=== PATIENT | female | born 1970 | race Caucasian/White ===

== ENCOUNTER 2016-12-16 07:45 | Emergency (ER) | payer MEDICAID ==
--- NOTE | 2016-12-16 08:15 | UC ---
Shoulder Pain HPI - HPI Summary HPI Summary: SLIPPED ON ICE 3 DAYS AGO AND FELL BACKWARDS - CATCHING HERSELF WITH HER RIGHT ARM. NOW HAS RIGHT SHOULDER PAIN AND DECREASED ROM - GETTING WORSE. IBUPROFEN GIVES SOME RELIEF. - History of Current Complaint Chief Complaint: UC Stated Complaint: SHOULDER INJURY Time Seen by Provider: 12/16/16 08:01 Hx Obtained From: Patient Hx Last Menstrual Period: 2012 Onset/Duration: Sudden Onset, Lasting Days, Still Present Timing: Constant Severity Initially: Moderate Severity Currently: Moderate Location Of Pain: Is Discrete @ - RIGHT SHOULDER Pain Intensity: 7 Pain Scale Used: 0-10 Numeric Character: Sharp, Aching Aggravating Factor(s): Movement Alleviating Factor(s): Rest Associated Signs And Symptoms: Positive: Negative Related History: Dominant Hand Right - Allergies/Home Medications Allergies/Adverse Reactions: Allergies Allergy/AdvReac Type Severity Reaction Status Date / Time Amoxicillin Allergy Unknown Verified 05/26/13 18:44 Reaction Details Azithromycin [From Zithromax] Allergy Rash Verified 01/12/14 11:03 Erythromycin Allergy "INSIDES Verified 05/26/13 18:44 ON FIRE" Sulfa Drugs Allergy Rash Verified 05/26/13 18:44 Sulfamethoxazole Allergy Unknown Verified 05/26/13 18:44 w/Trimethoprim Reaction [From Bactrim] Details CT CONTRAST DYE Allergy Mild ABDOMENAL Uncoded 06/10/13 13:42 RASH Home Medications: Home Medications Letrozole 2.5 mg PO DAILY 12/16/16 [History Confirmed 12/16/16] PMH/Surg Hx/FS Hx/Imm Hx Endocrine History Of: Denies: Diabetes Cardiovascular History Of: Denies: Hypertension, Congestive Heart Failure Respiratory History Of: Reports: Bronchitis - A CHILD, Pulmonary Embolism Denies: Asthma Cancer History Of: Reports: Breast Cancer - LEFT 04/13 Other History Of: Anticoagulant Therapy - COUMADIN - Surgical History Surgical History: Yes Surgery Procedure, Year, and Place: LEFT BREAST LUMPECTOMY X 2 & 2 SENTINEL NODES RESECTION. LEFT BREAST SURGERY -LALO DRAIN PLACED ON 05/2013-[facility] [place]. RIGHT CHEST WALL POWERPORT PLACEMENT (removed). HEMATOMA left breast removed June 2013 - Family History Known Family History: Negative: Hypertension, Diabetes - Social History Alcohol Use: Occasionally Alcohol Amount: not now - in radiation therapy now; chemo until 11/24 13 Substance Use Type: None Smoking Status (MU): Never Smoked Tobacco Have You Smoked in the Last Year: No - Immunization History Most Recent Influenza Vaccination: NEVER & REFUSES. WBC = 0.7 Most Recent Tetanus Shot: 20 Years ago Most Recent Pneumonia Vaccination: NEVER & REFUSES. WBC = 0.7 Review of Systems Constitutional: Negative Respiratory: Negative Cardiovascular: Negative Gastrointestinal: Negative Musculoskeletal: Arthralgia, Decreased ROM, Myalgia All Other Systems Reviewed And Are Negative: Yes Physical Exam Triage Information Reviewed: Yes Appearance: Well-Appearing, No Pain Distress, Well-Nourished Vital Signs: Initial Vital Signs Pulse 88 12/16/16 07:59 Pulse Ox 100 12/16/16 07:59 Vital Signs Reviewed: Yes Eyes: Positive: Conjunctiva Clear ENT: Positive: Hearing grossly normal Neck: Positive: Supple Respiratory: Positive: No respiratory distress, No accessory muscle use Cardiovascular: Positive: Pulses Normal Abdomen Description: Positive: Soft Musculoskeletal: Positive: No Edema, ROM Limited @ - RIGHT SHOULDER. ROM MORE RESTRICED WITH ACTIVE THAN PASSIVE MOVEMENT., Other: - TTP DIFFUSELY OVER RIGHT SHOULDER. 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 WILL FOLLOW-UP WITH PHYSICAL THERAPIST TOMORROW AND POSSIBLY ORTHO IF SX PERSIST. - Differential Dx/Diagnosis Differential Diagnosis/HQI/PQRI: Bursitis, Fracture (Closed), Rotator Cuff Injury Provider Diagnoses: RIGHT SHOULDER SPRAIN Discharge - Discharge Plan Condition: Stable Disposition: HOME Patient Education Materials: Shoulder Sprain (ED) Referrals: Osmani Michel MD [Medical Doctor] - 1 Week Pat Cruz MD [Primary Care Provider] - If Needed Additional Instructions: YOU MAY HAVE INJURED YOUR ROTATOR CUFF. DISCUSS POSSIBLE TREATMENT AT PT TOMORROW AND CONSIDER ORTHO FOLLOW-UP IF YOU ARE NOT IMPROVING OVER THE NEXT WEEK OR SO.
== END 2016-12-16 08:39 | disposition home or self-care (01) ==
LOC: UCEAST 07:45
DX: S43.401A Unspecified sprain of right shoulder joint, initial encounter (principal); W00.0XXA Fall on same level due to ice and snow, initial encounter; Y93.9 Activity, unspecified; Y92.9 Unspecified place or not applicable; Z88.0 Allergy status to penicillin; Z88.2 Allergy status to sulfonamides; Z88.1 Allergy status to other antibiotic agents; Z91.041 Radiographic dye allergy status; Z79.01 Long term (current) use of anticoagulants
CPT/HCPCS: 99211; G0463